=== PATIENT | female | born 1995 | race Two or more races ===

== ENCOUNTER 2025-08-29 02:34 | Emergency (ER) | payer MEDICAID, OTHER ==
[~2025-08-29] VITALS: Ht 175.3 cm; Wt 100.6 kg
--- NOTE | 2025-08-29 03:07 | ED.PDOC ---
General HPI Comments This is a 29-year-old female - , who presented to the ER with a chief complaint of abnormal uterine bleeding for past 1 day. She reports that she is currently diagnosed herself with urine test, LMP June 16, 2025, has not seen OBGYN yet, mentions that she has been experiencing pinkish bleeding while urinating yesterday, which progressed and patient passed fresh red blood with blood clots 1 hour back following which she came to the ER. She denies any abdominal pain, urinary symptoms, fever, chills, nausea, vomiting at this time. She never had these symptoms in the previous pregnancies. She started taking gummy 1 month back, reports smoking marijuana until she found she was which was 3 months back. Patient is currently with a new partner for the past 1 year. Denies vaginal discharge, any kind of rash. Past medical/surgical history: Denies OBGYN history: , 5 abortions-plan less than 10 weeks, last one 1 year back, LMP June 16, 2025. Patient seen and examined in ER. No abdominal tenderness normoactive bowel. No tachycardia, vitally stable. Chief Complaint: Vaginal Bleed Time Seen by MD: 02:40 Reviewed notes: Nurses Notes Allergies: Coded Allergies: NO KNOWN ALLERGIES (Unverified , 08/29/25) Information Source: Patient Mode of Arrival: Ambulatory Constitutional: denies: chills, diaphoresis, fatigue, fever, malaise, sweats, weakness, others EENTM: denies: blurred vision, double vision, ear bleeding, ear discharge, ear drainage, ear pain, ear ringing, eye pain, eye redness, hearing loss, mouth pain, mouth swelling, nasal discharge, nose bleeding, nose congestion, nose pain, photophobia, tearing, throat pain, throat swelling, voice changes, others Respiratory: denies: cough, hemoptysis, orthopnea, SOB at rest, shortness of breath, SOB with excertion, stridor, wheezing, others Cardiovascular: denies: chest pain, dizzy spells, diaphoresis, Dyspnea on exertion, edema, irregular heart beat, left arm pain, lightheadedness, palpitations, PND, syncope, others Gastrointestinal: denies: abdomen distended, abdominal pain, blood streaked bowels, constipated, diarrhea, dysphagia, difficulty swallowing, hematemesis, melena, nausea, poor appetite, poor fluid intake, rectal bleeding, rectal pain, vomiting, others Genitourinary: reports: abnormal vagina bleeding Neurological: reports: dizziness; denies: fainting, headache, left sided numbness, left sided weakness, numbness, paresthesia, pre-existing deficit, right sided numbness, right sided weakness, seizure, speech problems, tingling, tremors, weakness, others Musculoskeletal: denies: back pain, gout, joint pain, joint swelling, muscle pain, muscle stiffness, neck pain, others Integumetry: denies: bruises, change in color, change in hair/nails, dryness, laceration, lesions, lumps, rash, wounds, others Allergic/Immunocompromised: denies: Difficulty Healing, Frequent Infections, Hives, Itching, others Hematologic/Lymphatic: denies: anemia, blood clots, easy bleeding, easy bruising, swollen glands, others Endocrine: denies: excessive hunger, excessive sweating, excessive thirst, excessive urination, flushing, intolerance to cold, intolerance to heat, unexplained weight gain, unexplained weight loss, others Psychiatric: denies: anxiety, bipolar disorder, depression, hopeless, panic disorder, schizophrenia, sleepless, suicidal, others Physical Exam General Appearance: No Apparent Distress, Normal HEENT: Pharynx Normal Neck: NOT DONE Respiratory: No Accessory Muscle Use, No Respiratory Distress, Normal Breath Sounds Cardiovascular: No Edema, No JVD, No Murmur, Regular Rate/Rhythm Breast Exam: Deferred Gastrointestinal: No Organomegaly, Non Tender, No Pulsatile Mass, Normal Bowel Sounds, Soft Genitalia: Deferred Pelvic: Deferred Rectal: Deferred Extremities: No calf tenderness, Normal capillary refill, Normal inspection, Normal range of motion, Non-tender, No pedal edema Neurologic: Alert, Normal Mood, NOT DONE Cerebellar Function: NOT DONE Reflexes: NOT DONE Skin: Dry Lymphatic: NOT DONE Was a procedure done? Was a procedure done?: No Differential Diagnosis Kidney stone (Female): Ovarian torsion Urinary Problem (Female): Ectopic , Intrauterine , PID, UTI, Vaginitis X-Ray, Labs, Meds, VS Vital Signs Date Time Temp Pulse Resp B/P (MAP) Pulse Ox O2 Delivery O2 Flow Rate FiO2 08/29/25 04:51 98.3 77 16 112/71 (85) 100 98.3 10/17/25 02:36 97.6 85 18 120/74 100 97.6 Lab Test 08/29/25 06:03 08/29/25 03:24 Range/Units Urine Color Light-yellow Yellow Urine Clarity Clear Clear Urine pH 6.0 5.0-9.0 Urine Specific [place] 1.027 1.001-1.035 Urine Protein Negative Negative Urine Ketones Trace Negative Urine Blood Negative Negative /uL Urine Nitrite Negative Negative Urine Bilirubin Negative Negative Urine Urobilinogen Normal Negative mg/dL Urine Leukocyte Esterase Trace Negative /uL Urine RBC None seen 0 - 4 /hpf Urine Microscopic WBC 6 H 0-5 /HPF Urine Squamous Epithelial Cells None seen <5 /hpf Urine Bacteria None seen None Seen /hpf Urine Mucus Few None Seen Urine Glucose Normal Normal mg/dL White Blood Count 6.7 4.4-10.8 10^3/uL Red Blood Count 4.92 4.0-5.20 10^6/uL Hemoglobin 11.3 L 12.2-16.2 g/dL Hematocrit 34.7 L 36.0-46.0 % Mean Corpuscular Volume 70.4 L 80.0-100.0 fL Mean Corpuscular Hemoglobin 23.0 L 28.0-32.0 pg Mean Corpuscular Hemoglobin Concent 32.7 32.0-36.0 g/dL Red Cell Distribution Width 15.3 H 11.8-14.3 % Platelet Count 308 140-450 10^3/uL Mean Platelet Volume 7.9 6.9-10.8 fL Neutrophils (%) (Auto) 61.5 37.0-80.0 % Lymphocytes (%) (Auto) 30.1 10.0-50.0 % Monocytes (%) (Auto) 6.0 0.0-12.0 % Eosinophils (%) (Auto) 1.8 0.0-7.0 % Basophils (%) (Auto) 0.6 0.0-2.0 % Neutrophils # (Auto) 4.1 1.6-8.6 10 ^3/uL Lymphocytes # (Auto) 2.0 0.4-5.4 10 ^3/uL Monocytes # (Auto) 0.4 0-1.3 10 ^3/uL Eosinophils # (Auto) 0.1 0-0.8 10 ^3/uL Basophils # (Auto) 0 0-0.2 10 ^3/uL Nucleated Red Blood Cells 0.1 % Sodium Level 140 136-145 mmol/L Potassium Level 3.8 3.5-5.1 mmol/L Chloride Level 110 H 98-107 mmol/L Carbon Dioxide Level 24 20-31 mmol/L Anion Gap 6 5-15 Blood Urea Nitrogen 8 L 9-23 mg/dL Creatinine 0.80 0.550-1.02 mg/dL Glomerular Filtration Rate Calc 102 >90 mL/min BUN/Creatinine Ratio 10.0 10.0-20.0 Serum Glucose 87 74-106 mg/dL Calcium Level 8.3 L 8.7-10.4 mg/dL Total Bilirubin 0.3 0.2-1.0 mg/dL Aspartate Amino Transferase (AST) 38 13-40 U/L Alanine Aminotransferase (ALT) 46 H 7-40 U/L Alkaline Phosphatase 49 46-116 U/L Total Protein 6.5 5.7-8.2 g/dL Albumin 3.7 3.2-4.8 g/dL Beta HCG, Quantitative 61878.4 H 1.5-4.2 mIU/mL X-Ray, Labs, Meds, VS Comment ORDERING PHYSICIAN: BIMAL CHAVEZ RESIDENT PROCEDURE(s): OB4US - OB ULTRASOUND COMP LESS 14WKS REASON: Reports being , abnormal uterine bleeding ORDER NUMBER(s): [id number], ACCESSION NUMBER(s): [id number] OB ULTRASOUND <14 WEEKS: HISTORY: Reports being , abnormal uterine bleeding TECHNIQUE: Multiple real-time grayscale sonographic images of the pelvis with duplex Doppler color flow, spectral and M-mode analysis. FINDINGS: The uterus measures 11.9 x 7.0 x 7.8 cm. The cervix is not visualized. Right ovary measures 6.1 x 4.9 x 5.1 cm with normal Doppler color flow. There is a cyst measuring 4.3 x 3.9 x 4.3 cm. Left ovary is not visualized. There is an intrauterine gestation with crown-rump length measuring 2.3 cm corresponding to gestational age of 6 weeks 6 days. heart rate measures 176 beats per minute. There is perigestational fluid measuring 0.9 cm compatible with subchorionic bleed. Yolk sac is present. There is pelvic free fluid. IMPRESSION: 1. Single living intrauterine gestation with estimated gestational age of 6 wee ks 6 days. 2. Subchorionic bleed measuring 0.9 cm. 3. Right ovarian cyst measuring 4.3 cm. ATED BY: LILIANA NOLASCO MD DICTATED DATE/TIME: 08/29/25648 SIGNED BY: LILIANA NOLASCO MD SIGNED DATE/TIME: 08/29/25648 CC: Images Reviewed?: Images reviewed and evaluated by me Time of 1ST Reevaluation: 07:00 Reevaluation 1ST: Patient eloped Consultation: PCP Patient Education/Counseling: Diagnosis, Treatment Family Education/Counseling: No Family Present SEPSIS Sepsis Screen Date sepsis recognized/suspect: Aug 29, 2025 Time Sepsis recognized/suspect: 235 Recent Procedure: No On Antibiotic Therapy: No Respiratory Rate >20: No Heart Rate >90: No Temp<36 C (96.8 F) or >38.3 C: No SBP <90 or MAP <65 mmHG: No New Acute Mental Status Change: No Is the patient on CPAP, BIPAP,: No Physician Orders Ob Ultrasound Comp Less 14wks (08/29/25 03:00) Vital Signs Date Time Temp Pulse Resp B/P (MAP) Pulse Ox O2 Delivery O2 Flow Rate FiO2 08/29/25 04:51 98.3 77 16 112/71 (85) 100 98.3 08/29/25 02:36 97.6 85 18 120/74 100 97.6 Laboratory Tests Test 08/29/25 03:24 White Blood Count 6.7 10^3/uL (4.4-10.8) Departure 1 Departure Time of Disposition: 07:00 Impression: Primary Impression: Intrauterine Additional Impression: Subchorionic bleed Disposition: LEFT AWOL/ELOPED Condition: Other (Undetermined patient eloped) Comments Patient eloped Critical Care Note Critical Care Time?: No Stability Stability form required: BIMAL Saunders RESIDENT Aug 29, 2025 03:06
[2025-08-29 03:45] LABS: Hematocrit 34.7 % (36.0-46.0); Nucleated Red Blood Cells % 0.1 %
[2025-08-29 03:47] LABS: Hemoglobin 11.3 g/dL (12.2-16.2); Mean Corpuscular Hemoglobin 23.0 pg (28.0-32.0); Mean Corpuscular Volume 70.4 fL (80.0-100.0)
[2025-08-29 04:06] LABS: Alanine Aminotransferase 46 U/L (7-40); Albumin 3.7 g/dL (3.2-4.8); Alkaline Phosphatase 49 U/L (46-116); Anion Gap 6 (5-15); BUN/Creatinine Ratio 10.0 (10.0-20.0); Blood Urea Nitrogen 8 mg/dL (9-23); Calcium 8.3 mg/dL (8.7-10.4); Carbon Dioxide 24 mmol/L (20-31); Chloride 110 mmol/L (98-107); Glucose 87 mg/dL (74-106); Potassium 3.8 mmol/L (3.5-5.1); Sodium 140 mmol/L (136-145); Total Protein 6.5 g/dL (5.7-8.2)
[2025-08-29 04:07] LABS: Bilirubin, Total 0.3 mg/dL (0.2-1.0)
[2025-08-29 04:51] VITALS: BP 112/71; PULSE 77; RESP 16; TEMP 98.3; O2SAT 100
[2025-08-29 06:32] LABS: Urine Protein, UAD Negative (Negative)
--- NOTE | 2025-08-29 06:51 | DVH ---
OB ULTRASOUND <14 WEEKS: HISTORY: Reports being , abnormal uterine bleeding TECHNIQUE: Multiple real-time grayscale sonographic images of the pelvis with duplex Doppler color f low, spectral and M-mode analysis. FINDINGS: The uterus measures 11.9 x 7.0 x 7.8 cm. The cervix is not visualized. Right ovary measures 6.1 x 4.9 x 5.1 cm with normal Doppler color flow. There is a cyst measuring 4.3 x 3.9 x 4.3 cm. Left ovary is not visualized. There is an intrauterine gestation with crown-rump length measuring 2.3 cm corresponding to gestation al age of 6 weeks 6 days. heart rate measures 176 beats per minute. There is perigestational fl uid measuring 0.9 cm compatible with subchorionic bleed. Yolk sac is present. There is pelvic free fluid. IMPRESSION: 1. Single living intrauterine gestation with estimated gestational age of 6 weeks 6 days. 2. Subchorionic bleed measuring 0.9 cm. 3. Right ovarian cyst measuring 4.3 cm.
== END 2025-08-29 07:46 | disposition left against medical advice (07) ==
LOC: ER 02:34
DX: O00.01 Abdominal pregnancy with intrauterine pregnancy (principal); Z3A.01 Less than 8 weeks gestation of pregnancy
CPT/HCPCS: 36415; 76801; 76817; 80053; 81001; 84702; 85025; 86901